=== PATIENT | male | born 1985 | race Caucasian/White ===

== ENCOUNTER 2023-10-20 10:48 | Emergency (ER) | payer SELFPAY ==
[~2023-10-20] VITALS: Ht 175.3 cm; Wt 77.1 kg
[2023-10-20] MEDS ORDERED: LIDOCAINE HCL 1% (10MG/ML) 100 MG/10 ML MDV ONE (11:28)
[2023-10-20 13:36] VITALS: BP 110/72
== END 2023-10-20 13:42 | disposition home or self-care (01) | DRG 563 ==
LOC: ED 10:48
PROC: 0RSVXZZ Reposition Left Metacarpophalangeal Joint, External Approach (ICD-10-PCS; principal; 2023-10-20)
DX: S63.115A Dislocation of metacarpophalangeal joint of left thumb, initial encounter (principal); X58.XXXA Exposure to other specified factors, initial encounter; Y93.75 Activity, martial arts